=== PATIENT | male | born 1995 | race Caucasian/White ===

== ENCOUNTER 2017-11-06 09:17 | Inpatient (IN) | payer OTHER ==
[~2017-11-06] VITALS: Ht 180.3 cm; Wt 110.2 kg
--- NOTE | ~2017-11-06 | PATH ---
[facility] [place] [address] [address] PATHOLOGY RPT PROCEDURE Name: GRETA SANCHEZ Room #: 456-P [facility] IN M.R.#: [id number] Admission: 11/06/17 Date of : [birth year] Discharge: 11/07/17 Report #: [id number] Path Case #: [id number] [facility] Accession Number: [id number] . 01 Material submitted: . PERIPHERAL SMEAR . 01 Clinical history: . 22 year-old man with leukocytosis. Morphologic review of the peripheral blood smear is requested by the patient's physician. . 02 Diagnosis: Peripheral blood smear: - Mild leukocytosis with atypical/reactive lymphocytosis and mildly left shifted granulocytes. (see comment) QRQ/11/10/2017 . 02 Comment: Overall, the peripheral blood has mild leukocytosis with an atypical/reactive lymphocytosis and mildly left shifted granulocytes. Hemoglobin and platelet counts are within the normal reference ranges. No microorganisms are identified. The atypical/reactive lymphocytosis is likely a viral process. Correlation with clinical history and additional laboratory data is recommended. (CLW:mgr; 11/10/17) . 02 Electronically signed: . Mackenzie Palma MD, Pathologist NPI- [id number] . 02 Microscopic: . CBC Data (11/06/17): WBC 16,700 /uL, RBC 4.92, hemoglobin 14.0 g/dL, hematocrit 40.6%, MCV 82.6 fL, MCH 28.5 pg, MCHC 34.5 g/dL, RDW 13.5%, and platelet count 265,000 /uL. Manual white blood cell differential: segs 17%, bands 2%, lymphs 38%, monos 9%, metas 1%, myelos 1%, and atypical lymphs 32%. . Peripheral Blood Smear: Cytomorphological examination of the Rios's stained peripheral blood smear confirms the provided data. Red blood cells are normocytic to mildly microcytic and are without significant anisopoikilocytosis. White blood cells are mildly increased in number. They are predominantly lymphocytes with reactive changes. Granulocytes are predominantly segmented neutrophils with a mild left shift including rare myelocytes and metamyelocytes noted on scanning. No blasts or Davin rods are seen. Monocytes are mature. Platelets are adequate in number and mainly normal in morphology with rare larger platelets noted. [address] [address] PATHOLOGY RPT PROCEDURE Name: GRETA SANCHEZ Room #: 456-P [facility] IN M.R.#: [id number] Admission: 11/06/17 Date of : [birth year] Discharge: 11/07/17 Report #: [id number] Path Case #: [id number] . 02 [facility] . [id number] Performed at: [address] [facility] [address], [place], [place] [id number] MD Shree Castellon MD Phone: [phone] Performed at: [address] [facility] [id number] MD Sunni Rincon MD Phone: [phone]
--- NOTE | ~2017-11-06 | HC ---
[facility] [place] [address] [place] [address] CONSULTATION Name: GRETA SANCHEZ Room #: 456-P [facility] IN M.R.#: [id number] Admission: 11/06/17 Attend Phys: Asael Anthony MD Discharge: 11/07/17 Date of : [birth year] Report #: [id number] THIS REPORT FOR: //name// CC: Alexandria Schilling INFECTIOUS DISEASE CONSULTATION REASON FOR CONSULTATION: I was asked to evaluate concerning persistent fever and hepatitis. HISTORY OF PRESENT ILLNESS: The patient is a 22-year-old otherwise healthy individual and 12 days ago had the onset of fever, chills, headache, myalgias, arthralgias, nausea, vomiting and some loose stool, profound fatigue along with this. Lasted several days and gradual improvement. Headache improved, he is actually about 5 days into it, was able to go out to dinner and went to a ball game. Then, things worsened with return of his fever up to 102 degrees, headache persisted, some photophobia, nausea, anorexia. He was seen in the outpatient clinic on 2 occasions. He actually went to the [facility] Emergency Room on 11/03/2017. There, a workup included hemoglobin 13.4, platelet count 244,000, white count 8.8, did not see a differential done. Creatinine was 1.1, AST 226, bilirubin 1.8, alkaline phosphatase 176, ALT 213. Chest x-ray was clear. Blood cultures 1 of 4 bottles positive for diphtheroids. Hepatitis A, B and C antibodies negative. Monospot negative. Group A strep screen negative. Influenza antigen negative. Given fluids, sent home on nonsteroidal anti-inflammatories, pain meds. Returns now through outpatient clinic for hospitalization due to failure to thrive. He has been off work for the past 12 days. 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 No other workmates have been ill. No sexual partners. No history of HIV risk. No travel outside [place]. He did have woodlands exposure for about 2 hours 3 weeks ago. No ticks were found. Along with this, there has been no adenopathy or rash. Remains profoundly fatigued. Lives with his father and two siblings. They have all been well. He is on no medicines on a regular basis. Denies any previous history of mononucleosis. Immunizations are up-to-date. REVIEW OF SYSTEMS: He has had no sinus congestion. Mild sore throat. No cough or sputum production. No pleuritic chest pain. No blood in his stool, no blood in his urine. Denies any icterus. PAST MEDICAL HISTORY: ADHD, childhood seizures. FAMILY HISTORY: Noncontributory. SOCIAL HISTORY: Nonsmoker, no significant alcohol intake. PHYSICAL EXAMINATION: [facility] [address] [place] [address] CONSULTATION Name: GRETA SANCHEZ Room #: 456-P [facility] IN M.R.#: [id number] Admission: 11/06/17 Attend Phys: Asael Anthony MD Discharge: 11/07/17 Date of : [birth year] Report #: [id number] GENERAL: He is afebrile and hemodynamically stable. Alert and cooperative. Mild dehydration. Moderate obesity. Mental status was normal. HEENT: Remarkable for mild scleral icterus. Mouth: Posterior oropharynx was injected. Minimal tonsillar swelling. NECK: Supple. No adenopathy. CHEST: Clear. HEART: Regular. No murmur, gallop or rub. ABDOMEN: Soft, mild tenderness in the epigastric and upper quadrant region. Spleen tip was palpable on deep inspiration. Liver tip was palpable on deep inspiration. GENITOURINARY: External genitalia unremarkable. Perianal examination unremarkable. SKIN: Without rash. No ticks were evident. NEUROLOGIC: Normal. LABORATORY STUDIES: Hemoglobin 14, WBC 16.7, platelet count 265,000. Differential is not yet available. Sodium 131, potassium 3.4, bicarbonate 27, creatinine 1.1, AST 320, ALT 472, alkaline phosphatase 276, bilirubin 4.4, albumin at 3.8. Monospot negative. INR 1. IMPRESSION: A 22-year-old with persistent fever over the last 12 days associated with hepatitis, headache, myalgias and asthenia. I am still suspecting viral etiology would be most likely. Although his Monospot was negative, Jenny-Claudio virus in this age group would be most common. Also, evaluate for cytomegalovirus. No other risk factors are noted other than some with an exposure. Ehrlichia also a consideration, although no thrombocytopenia. I would like to see his differential on his white count. He also has some splenomegaly, which would go along with Jenny-Claudio virus as well. RECOMMENDATIONS: We will continue with IV fluids to hydrate. Obtain ultrasound of the abdomen to assess his spleen and liver. Obtain differential on the CBC and peripheral smear. Check tick-borne pathogens, HIV, RPR. We will begin doxycycline empirically. Revaluate in the next 12-24 hours. I have discussed with attending and nursing as well as father at the bedside. <ELECTRONICALLY SIGNED> By: West Michael MD 11/10/17 [id number] West Michael MD /nt
[2017-11-06 09:50] VITALS: BP 116/66
[2017-11-06 10:47] LABS: HEMATOCRIT 40.6 % (42.0-52.0); MCH 28.5 pg (26.0-34.0); MCHC 34.5 g/dL (28.0-37.0); MCV 82.6 fL (80.0-100.0); PLATELET COUNT 265 thou/uL (150-400); RBC 4.92 mil/uL (4.50-6.00); RDW 13.5 % (10.5-14.5); WBC 16.7 thou/uL (4.0-11.0)
[2017-11-06 10:53] LABS: CALCIUM 9.4 mg/dL (8.5-10.1); CREATININE 1.1 mg/dL (0.7-1.3); POTASSIUM 3.4 mmol/L (3.5-5.1)
[2017-11-06 10:55] LABS: PROTIME 10.7 Seconds (9.3-11.4)
[2017-11-06 10:59] LABS: ALBUMIN 3.8 g/dL (3.4-5.0); TOTAL BILIRUBIN 4.4 mg/dL (<0.1-1.0); TOTAL PROTEIN 8.2 g/dL (6.4-8.2)
[2017-11-06 13:57] LABS: METAMYELOCYTES 1 %
[2017-11-06 13:58] LABS: ABSOLUTE NEUTROPHILS 3.2 thou/uL (1.4-8.2); MYELOCYTES 1 %
[2017-11-06 14:02] LABS: ANISOCYTOSIS 1+
[2017-11-06 14:09] LABS: ATYPICAL LYMPHS 32 %
[2017-11-06 15:58] VITALS: BP 114/69
[2017-11-06 16:05] LABS: URINE BILIRUBIN 3+ (Negative); URINE BLOOD NEGATIVE (Negative); URINE CLARITY CLEAR; URINE COLOR AMBER; URINE GLUCOSE-RANDOM* NEGATIVE (Negative); URINE KETONES NEGATIVE (Negative); URINE LEUKOCYTES NEGATIVE (Negative); URINE PROTEIN (DIPSTICK) 1+ (Negative); URINE UROBILINOGEN >= 8.0 E.U./dl (0.2-1.0)
[2017-11-06 16:06] LABS: ICTOTEST (BILI CONFIRMATORY) Positive (Negative)
[2017-11-06 16:09] LABS: BACTERIA None Seen /HPF (None Seen); CASTS None Seen /LPF (None Seen); CRYSTALS None Seen /LPF (None Seen); SQUAMOUS None Seen /LPF (0-3); URINE RBC None Seen /HPF (0-2); URINE WBC None Seen /HPF (0-5)
[2017-11-06 17:09] LABS: HAV IgM AB (ANTI-HAV IgM) Negative (Negative); HEPATITIS B SURFACE AG Negative (Negative); HEPATITIS C VIRUS AB 0.2 (0.0-0.9)
[2017-11-06 19:23] VITALS: BP 106/63
[2017-11-06 23:09] LABS: HIV ANTIBODY Non Reactive (Non Reactive)
[2017-11-07 03:14] VITALS: BP 117/60
[2017-11-07 06:08] LABS: LYME ANTIBODY SCREEN* <0.91 ISR (0.00-0.90)
[2017-11-07] MEDS ORDERED: CENTRUM SILVER1 EAC2 PO (08:43)
[2017-11-07] MEDS ORDERED: AMBIEN 5 MG TABL5 M1 PO (08:43)
[2017-11-07 09:08] VITALS: BP 117/60
[2017-11-07 09:12] VITALS: BP 115/54
[2017-11-09 14:08] LABS: EBV DNA log10 PCR 4.146 (())
[2017-11-12 00:06] LABS: ANTI-EBNA <18.0 U/mL (0.0-17.9); ANTI-VCA/IgM >160.0 U/mL (0.0-35.9); EBV EARLY ANTIGEN >150.0 U/mL (0.0-8.9)
== END 2017-11-07 09:24 | disposition home or self-care (01) | DRG 442 ==
LOC: 4W 09:17
PROVIDERS: Hospitalist; Specialist
DX: B25.1 Cytomegaloviral hepatitis (principal); M79.1 Myalgia; R16.1 Splenomegaly, not elsewhere classified; D72.820 Lymphocytosis (symptomatic); Z79.899 Other long term (current) drug therapy
CPT/HCPCS: 10047